=== PATIENT | female | born 1990 | race Caucasian/White ===

== ENCOUNTER 2019-09-03 23:34 | Emergency (ER) | payer MEDICAID ==
[2019-09-04] MEDS: Bacitracin/Neomycin/Polymyxin B Oint 0.9 GM U/D Packet TOP ONE (00:02)
--- NOTE | 2019-09-04 00:06 | EDM.PDOC ---
ED HPI GENERAL MEDICAL PROBLEM - General Chief Complaint: Laceration Stated Complaint: laceration Time Seen by Provider: 09/03/19 23:50 Source of Information: Reports: Patient History Limitations: Reports: No Limitations - History of Present Illness INITIAL COMMENTS - FREE TEXT/NARRATIVE: States that she was restless tonight and to calm down she cut herself with the blade from the pencil sharpener. She states that it helps to calm herself down. She did this about 30 minutes before coming in. She denies wanting to harm herself and denies any suicidal thoughts. Denies any plan at this time of having a plan to kill self. She had previously told nursing that she did but now denies it. She has done this several times in the past and has multiple healed cuts on both arms. She can't remember how long it had been since the last time she cut. She has 19 very superficial lacerations to the left forearm. None of them have gone through the epidermis. They are red but have no bleeding from them. She states that she came in to see if any of them needed care. "I thought it would be the responsible thing to do". She is very calm at this time. She does follow with Shani Bustos and saw her yesterday. She denies any increase in stress in life. "I was just restless". Location: Reports: Upper Extremity, Left - Related Data Allergies Allergy/AdvReac Type Severity Reaction Status Date / Time No Known Allergies Allergy Verified 09/03/19 23:37 Home Meds: Home Meds Citalopram [Citalopram HBr] 40 mg PO DAILY 09/03/19 [History] Fluticasone Propionate [Flonase] 1 spray NASBOTH DAILY 09/03/19 [History] Methylphenidate [Metadate ER] 30 mg PO DAILY 09/03/19 [History] Past Medical History Psychiatric History: Reports: ADD, Depression, Other (See Below) (self cutting) - Past Surgical History HEENT Surgical History: Reports: Tonsillectomy, Other (See Below) Other HEENT Surgeries/Procedures: wisdom teeth removal Social & Family History - Tobacco Use Smoking Status *Q: Never Smoker - Caffeine Use Caffeine Use: Reports: Soda - Recreational Drug Use Recreational Drug Use: No ED ROS GENERAL - Review of Systems Review Of Systems: See Below Constitutional: Reports: No Symptoms Skin: Reports: Wound (left forearm) Psychiatric: Reports: Other ("restless"). Denies: Homicidal Ideation, Suicidal Ideation ED EXAM, SKIN/RASH Exam: See Below Exam Limited By: No Limitations General Appearance: Alert, WD/WN, No Apparent Distress Skin: Warm, Dry, Wound/Incision (19 superficial lacerations noted to the left forearm. They are not bleeding nor did they gap open. ) Location, Skin: Upper Extremity, Left Course - Vital Signs Last Recorded V/S: Last Vital Signs Temp 97 F 09/03/19 23:35 Pulse 71 09/03/19 23:35 Resp 16 09/03/19 23:35 BP 121/66 09/03/19 23:35 Pulse Ox 100 09/03/19 23:35 - Orders/Labs/Meds Meds: Medications Discontinued Medications Generic Name Dose Route Start Last Admin Trade Name Freq PRN Reason Stop Dose Admin Neomycin/Polymyxin/Bacitracin 2 each 09/04/19 00:00 09/04/19 00:02 Triple Antibiotic Oint TOP 09/04/19 00:01 2 each ONETIME ONE Administration Departure - Departure Time of Disposition: 00:06 Disposition: Home, Self-Care 01 Condition: Good Clinical Impression: Self-cutting of wrist - Discharge Information *PRESCRIPTION DRUG MONITORING PROGRAM REVIEWED*: Not Applicable *COPY OF PRESCRIPTION DRUG MONITORING REPORT IN PATIENT SYLVIE: Not Applicable Instructions: Wound Care, Adult Referrals: PCP,None [Primary Care Provider] - Forms: ED Department Discharge Additional Instructions: If any suicidal thoughts occur you need to return to the ER Follow up with Shani Bustos Recheck for any new concerns. Sepsis Event Note - Evaluation Sepsis Screening Result: No Definite Risk - Focused Exam Vital Signs: Vital Signs Temp Pulse Resp BP Pulse Ox 09/03/19 23:35 97 F 71 16 121/66 100 Date Exam was Performed: 09/04/19 Time Exam was Performed: 00:08 - Problem List & Annotations (1) Self-cutting of wrist SNOMED Code(s): 253812098 Code(s): S61.519A - LACERATION WITHOUT FOREIGN BODY OF UNSP WRIST, INIT ENCNTR; X78.9XXA - INTENTIONAL SELF-HARM BY UNSP SHARP OBJECT, INIT ENCNTR Status: Acute Current Visit: Yes - Problem List Review Problem List Initiated/Reviewed/Updated: Yes
== END 2019-09-04 00:10 | disposition home or self-care (01) ==
LOC: CC.ED 23:34
DX: S61.519A Laceration without foreign body of unspecified wrist, initial encounter (principal); S51.812A Laceration without foreign body of left forearm, initial encounter; F32.9 Major depressive disorder, single episode, unspecified; F98.8 Other specified behavioral and emotional disorders with onset usually occurring in childhood and adolescence; Z79.899 Other long term (current) drug therapy; W26.8XXA Contact with other sharp object(s), not elsewhere classified, initial encounter
CPT/HCPCS: 99282